=== PATIENT | female | born 1960 | race Caucasian/White ===

== ENCOUNTER 2016-12-18 19:01 | Emergency (ER) | payer BC ==
[2016-12-18] MEDS ORDERED: Fentanyl 100 MCG/2 ML VIAL ONE (19:51)
[2016-12-18] MEDS ORDERED: Clindamycin/D5W 600 mg/50 ml Premix Bag ONE (19:51)
[2016-12-18 20:11] LABS: #Basophils 0.1 thou/uL (0.0-0.2); #Eosinphils 0.3 thou/uL (0.0-0.7); #Lymphocytes 1.7 thou/uL (1.20-3.40); #Monocytes 0.8 thou/uL (0.11-0.59); %Basophils 0.4 % (0.0-1.0); %Eosinophils 1.7 % (0.0-10.0); %Lymphocytes 9.7 % (21.0-51.0); %Monocytes 4.6 % (0.0-10.0); Hematocrit 43.6 % (36.0-47.0); Mean Platelet Volume 7.4 fL (7.4-10.4); Red Blood Cell (RBC) Count 4.59 mill/uL (4.20-5.40); White Blood Cell (WBC) Count 17.9 thou/uL (4.8-10.8)
[2016-12-18 20:13] LABS: Prothrombin Time 12.4 SEC (12.0-14.7)
[2016-12-18 20:30] LABS: ALT (SGPT) 31 U/L (8-55); AST (SGOT) 34 U/L (5-34); Alkaline Phosphatase 76 U/L (40-150); Anion Gap 8 mmol/L (10-20); BUN (Urea Nitrogen) 15 mg/dL (9.8-20.1); Bilirubin, Total Less than 0.2 mg/dL (0.2-1.2); Calc. Creatinine Clearance 0 mL/min (70-130); Calcium 8.8 mg/dL (7.8-10.44); Carbon Dioxide 24 mmol/L (22-29); Estimated GFR-MDRD 76; Globulin 3.1 g/dL (2.4-3.5)
[2016-12-18 20:57] LABS: Chloride 106 mmol/L (98-107)
[2016-12-18] MEDS ORDERED: Lidocaine 1.5% w/Epi 1:200K 30 ML VIAL (Epid Use) FS SCH (21:00)
[2016-12-18] MEDS ORDERED: HYDROcodone/Acetaminophen 10/325 mg Tablet ONE (23:17)
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
== END 2016-12-18 23:35 | disposition home or self-care (01) ==
LOC: ERS 19:01
DX: S02.40DB Maxillary fracture, left side, initial encounter for open fracture (principal); J43.9 Emphysema, unspecified; F32.9 Major depressive disorder, single episode, unspecified; F17.210 Nicotine dependence, cigarettes, uncomplicated; Y04.8XXA Assault by other bodily force, initial encounter
CPT/HCPCS: 12052; 36415; 96361; 96365; 96374; J3010; J3490